=== PATIENT | male | born 1985 | race African-American/Black ===

== ENCOUNTER → 2017-01-29 | Outpatient (REF) | payer MEDICAID, OTHER ==
[2017-01-29 19:21] LABS: ALBUMIN 4.1 GM/DL (3.2-5.2); ALBUMIN/GLOBULIN RATIO 1.17 (1.00-1.93); ALKALINE PHOSPHATASE 112 U/L (45-117); ALT/SGPT 21 U/L (12-78); ANION GAP 9 MEQ/L (8-16); AST/SGOT 22 U/L (15-37); BILIRUBIN,TOTAL 1.3 MG/DL (0.2-1.0); BLOOD UREA NITROGEN 20 MG/DL (7-18); CALCIUM LEVEL 9.3 MG/DL (8.5-10.1); CARBON DIOXIDE LEVEL 28 MEQ/L (21-32); CHLORIDE LEVEL 105 MEQ/L (98-107); CHOLESTEROL LEVEL 122 MG/DL (<200); GLOMERULAR FILTRATION RATE > 60.0 (>60); GLUCOSE, FASTING 81 MG/DL (70-105); POTASSIUM SERUM 4.1 MEQ/L (3.5-5.1); SODIUM LEVEL 142 MEQ/L (136-145); TOTAL PROTEIN 7.6 GM/DL (6.4-8.2); TRIGLYCERIDES LEVEL 66 MG/DL (<150)
== END ==
LOC: M LAB REF 16:43
PROVIDERS: ATTEND Family Medicine Addiction Medicine
DX: Z00.00 Encounter for general adult medical examination without abnormal findings (principal)

== ENCOUNTER 2017-04-03 12:41 | Inpatient (IN) | payer OTHER ==
[~2017-04-03] VITALS: Ht 170.2 cm; Wt 66.0 kg
[2017-04-03] MEDS ORDERED: AMLOD/BENAZP (13:02)
[2017-04-03 14:43] LABS: MEAN CORPUSCULAR HEMOGLOBIN 30.9 pg (27.0-33.0); MEAN CORPUSCULAR HGB CONC 34.4 g/dl (32.0-36.5); PLATELET COUNT, AUTOMATED 365 10^3/uL (150-450); RED CELL DISTRIBUTION WIDTH 12.3 % (11.5-14.5); WHITE BLOOD COUNT 5.2 10^3/uL (4.0-10.0)
[2017-04-03 15:02] LABS: ALBUMIN 4.3 GM/DL (3.2-5.2); ALBUMIN/GLOBULIN RATIO 1.34 (1.00-1.93); ALKALINE PHOSPHATASE 105 U/L (45-117); ALT/SGPT 25 U/L (12-78); ANION GAP 5 MEQ/L (8-16); AST/SGOT 25 U/L (7-37); BILIRUBIN,DIRECT 0.2 MG/DL (0.0-0.2); BILIRUBIN,TOTAL 0.8 MG/DL (0.2-1.0); BLOOD UREA NITROGEN 15 MG/DL (7-18); CALCIUM LEVEL 9.2 MG/DL (8.5-10.1); CARBON DIOXIDE LEVEL 30 MEQ/L (21-32); CHLORIDE LEVEL 103 MEQ/L (98-107); GLOMERULAR FILTRATION RATE > 60.0 (>60); GLUCOSE, FASTING 79 MG/DL (70-105); SODIUM LEVEL 138 MEQ/L (136-145); TOTAL PROTEIN 7.5 GM/DL (6.4-8.2)
[2017-04-03 15:04] LABS: METHADONE URINE NEGATIVE (NEGATIVE)
[2017-04-03] MEDS ORDERED: ACETAMINOPHEN TAB 650MG DOSE (2X325MG) PO PRN (16:00)
[2017-04-03] MEDS ORDERED: MAALOX 30 ML SUSP *UDC PO PRN (16:00)
[2017-04-03] MEDS ORDERED: MOM 30ML SUSPENSION UDC PO PRN (16:00)
[2017-04-03] MEDS ORDERED: AMLO10CA PO (16:53)
[2017-04-03 17:19] VITALS: BP 151/91
[2017-04-03] MEDS: traZODone 50 MG TAB PO PRN (21:09)
[2017-04-04 06:47] VITALS: BP 142/51
[2017-04-04] MEDS: amLODIPine 10 MG TAB PO SCH (08:55)
[2017-04-04] MEDS: BENAZEPRIL 20 MG TAB PO SCH (08:56)
[2017-04-04 20:41] VITALS: BP 144/80
[2017-04-04] MEDS: traZODone 50 MG TAB PO PRN (21:17)
[2017-04-05 06:36] VITALS: BP 140/90
[2017-04-05] MEDS: amLODIPine 10 MG TAB PO SCH (08:11)
[2017-04-05] MEDS: BENAZEPRIL 20 MG TAB PO SCH (08:11)
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
--- NOTE | 2017-04-05 10:47 | MHIPNPDOC ---
[facility] Progress Note Progress Note DATE OF SERVICE: 04/05/17 HISTORY: "31-year-old male with a history of depression, learning disability and anger management, admitted to our unit on a 9.39 legal status. According to the records, the patient was brought to the emergency department after he expressed suicidal thoughts at a [facility] ([facility]. The patient was planning to jump into the [place]. The patient states that has been feeling very depressed with poor sleep, feelings of hopelessness, helplessness, and suicidal ideation." VITAL SIGNS: See below. NEW TEST RESULTS: N/A CURRENT MEDICATIONS: See below. MENTAL STATUS EXAMINATION: Patient is a 31-year old male, who is alert, cooperative, dressed in hospital clother, poor eye contact. Speech: Is spontaneous and fluent. Language skills are Fair Thought processes including: Intact. Thought content: Anxious thoughts about going back to the place he lived. Abstract reasoning, and computation: Limited Description of associations: Good Description of abnormal or psychotic thoughts: Denies SI/HI, a/V hallucinations , denies thought delusions Judgment: Limited Insight: Limited Orientation: Oriented x 3 Recent and remote memory: Intact Attention span and concentration: Fair Language: Fair Fund of knowledge: Limited. Mood: Depressed. Affect: Constricted DIAGNOSES: 1. Adjustment Disorder with depressed/anxious mood ASSESSMENT:Patient says he got stressed out because he could not sleep for days because his room was full of bed bugs. He says he has limited resources and he became so overwhelmed and depressed by not being able to sleep that he thought about killing himself. Talked to him about the possibility of talking to [facility] on Saturday to see if there's another housing possibility for him. MANAGEMENT PLAN: As above TIME SPENT: 20 minutes. Vital Signs Vital Signs Date Time Temp Pulse Resp B/P (MAP) Pulse Ox O2 Delivery O2 Flow Rate FiO2 04/05/17 08:11 65 143/81 04/05/17 06:36 98.6 14 04/04/17 06:47 Room Air 04/03/17 16:53 96 Current Medications Current Medications Acetaminophen (Tylenol Tab) 650 mg Q6HP PRN PO HEADACHE or DISCOMFORT; Start 04/03/17 at 16:00; Stop 05/03/17 at 15:59 Al Hydrox/Mg Hydrox/Simethicone (Mylanta) 30 ml Q4HP PRN PO HEARTBURN/ INDIGESTION; Start 04/03/17 at 16:00; Stop 05/03/17 at 15:59 Amlodipine Besylate (Norvasc) 10 mg DAILY PO Last administered on 04/05/17 08 :11; Start 04/04/17 at 09:00; Stop 05/04/17 at 08:59 Benazepril HCl (Lotensin) 20 mg DAILY PO Last administered on 04/05/17 08:11 ; Start 04/04/17 at 09:00; Stop 05/04/17 at 08:59 Home Med (Med Rec Complete!) ASDIRECTED XX ; Start 04/03/17 at 17:00; Stop at 17:00; Status DC Magnesium Hydroxide (Milk Of Magnesia) 30 ml DAILYPRN PRN PO CONSTIPATION; Start 04/03/17 at 16:00; Stop 05/03/17 at 15:59 Trazodone HCl (Desyrel) 50 mg QHSP PRN PO INSOMNIA Last administered on 21:17; Start 04/03/17 at 16:00; Stop 05/03/17 at 15:59 Allergies Coded Allergies: Kiwi (Verified Allergy, Unknown, 04/03/17) CITLALI FERRARA MD Apr 05, 2017 10:47
[2017-04-05] MEDS: ESCITALOPRAM OXALATE 10 MG TAB (LEXAPRO) PO SCH (11:45)
[2017-04-05 18:00] VITALS: BP 146/89
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
[2017-04-05] MEDS: traZODone 50 MG TAB PO PRN (21:12)
[2017-04-06 06:38] VITALS: BP 153/98
[2017-04-06] MEDS: BENAZEPRIL 20 MG TAB PO SCH (08:20)
[2017-04-06] MEDS: amLODIPine 10 MG TAB PO SCH (08:20)
[2017-04-06] MEDS: ESCITALOPRAM OXALATE 10 MG TAB (LEXAPRO) PO SCH (08:20)
--- NOTE | 2017-04-06 17:38 | MHIPN ---
DATE: 04/06/2017 HISTORY: A 31-year-old male admitted to our unit for depression, high anxiety. Patient also has a learning disability and anger management problems. MEDICATIONS: - Lexapro 20 mg by mouth every morning - trazodone 50 mg by mouth at bedtime as needed for insomnia SUBJECTIVE: "I'm feeling a little better." OBJECTIVE: Patient is improving slowly. Patient is interacting better with other patients and staff. Denies auditory or visual hallucinations or delusions. Denies side effect from medication. Patient appears to be motivated for treatment. MENTAL STATUS EXAMINATION: Patient dressed in [facility]. Patient is cooperative during exam. Has fair eye contact. The speech is slow and monotone. Mood is depressed and anxious but improved. Affect is congruent with mood. No delusions. No hallucinations. Memory, attention, and concentration are fair. Patient is able to contract for safety during the interview. Insight and judgment are fair. ASSESSMENT: 1. Depression, 2. High anxiety. 3. Learning disability. 4. Anger management. PLAN: 1. Continue with Lexapro 20 mg by mouth every morning. 2. Continue with trazodone 50 mg by mouth at bedtime as needed for insomnia. 3. Continue medication management, individual and group therapy.
[2017-04-06 18:00] VITALS: BP 160/98
[2017-04-06] MEDS: traZODone 50 MG TAB PO PRN (21:10)
[2017-04-07 06:43] VITALS: BP 156/97
[2017-04-07] MEDS: amLODIPine 10 MG TAB PO SCH (08:47)
[2017-04-07] MEDS: ESCITALOPRAM OXALATE 10 MG TAB (LEXAPRO) PO SCH (08:47)
[2017-04-07] MEDS: BENAZEPRIL 20 MG TAB PO SCH (08:47)
--- NOTE | 2017-04-07 17:33 | MHIPN ---
DATE: 04/07/2017 HISTORY: A 31-year-old male admitted to our unit for depression and high anxiety. The patient also has a learning disability and anger management problems. MEDICATIONS: - Lexapro 20 mg by mouth every morning - trazodone as needed for insomnia SUBJECTIVE: "I'm feeling much better, I don't think I need medication." OBJECTIVE: The patient reports significant improvement from admission. The patient is reporting that he no longer will take the medications since he believes that he does not need to take antidepressants and that he has been feeling a lot better. I encouraged the patient to discuss this issue with his primary psychiatrist. MENTAL STATUS EXAMINATION: The patient is dressed in [facility]. The patient is cooperative, has fair eye contact. Speech is normal in rate, volume and articulation, is coherent and is spontaneous. Mood is slightly depressed but improved. Affect is congruent with mood. No delusions. No hallucinations. Memory, attention, and concentration are fair. The patient is denying suicidal or homicidal ideation. Insight and judgment are fair. ASSESSMENT: 1. Depression. 2. High anxiety. 3. Learning disability. 4. Anger management. PLAN: 1. Continue Lexapro 20 mg by mouth every morning. 2. Continue trazodone as needed for insomnia. 3. Continue medication management, individual and group therapy.
[2017-04-07 18:00] VITALS: BP 158/79
[2017-04-07] MEDS: traZODone 50 MG TAB PO PRN (22:11)
[2017-04-08 06:00] VITALS: BP 158/96
[2017-04-08] MEDS: ESCITALOPRAM OXALATE 10 MG TAB (LEXAPRO) PO SCH (09:00)
[2017-04-08 09:04] VITALS: BP 165/86
[2017-04-08] MEDS: amLODIPine 10 MG TAB PO SCH (09:04)
[2017-04-08] MEDS: BENAZEPRIL 20 MG TAB PO SCH (09:04)
[2017-04-08] MEDS ORDERED: TRAZO50TA PO (10:01)
[2017-04-08] MEDS ORDERED: ESCI10TA2 PO (10:01)
[2017-04-08] MEDS ORDERED: AMLO10TA2 PO (10:06)
[2017-04-08] MEDS ORDERED: BENA20TA PO (10:06)
--- NOTE | 2017-04-08 14:38 | MHDSPDOC ---
[facility] Discharge Summary Discharge Summary DATE OF ADMISSION: Apr 03, 2017 at 15:48 DATE OF DISCHARGE: Apr 08, 2017 at 13:08 DISCHARGE DIAGNOSES: 1. Adjustment Disorder with depressed/anxious mood 2. Generalized anxiety disorder REASON FOR ADMISSION: As per Dr. Velásquez: "31-year-old male with a history of depression, learning disability and anger management, admitted to our unit on a 9.39 legal status. According to the records, the patient was brought to the emergency department after he expressed suicidal thoughts at a [facility]. The patient was planning to jump into the [place]. The patient states that has been feeling very depressed with poor sleep, feelings of hopelessness, helplessness, and suicidal ideation. There is no evidence of psychotic symptoms. No auditory or visual hallucinations or delusions. The patient has learning disability and has anger management problems. He has been on probation for the last 3 years for endangering the welfare of a child. The patient is also at [facility] for alcohol dependency. The patient reports that he has stopped drinking 1-1/2 months ago but admits that he has been drinking a beer now and then." CONSULTANTS INVOLVED: None TREATMENT AND PROGRESS ON THE UNIT : Patient admitted to be very stressed out because he lives at an apartment in [facility] that is infested with bed bugs and he said there are so many, that he can't sleep because they bite him. He said he can't stay there for long periods of time because they bite him. He reported being very irritable and on edge. He didn't see an end to this problem or a solution to this situation and he said he didn't have any support system in the area and for that reason, he thought of [place]. At the [facility], he showed a good response to medications, denied side effects, attended some of the groups. On the . he didn't look depressed and he denied SI/HI/psychosis but said he still felt stressed about going back to the same place. he said he expected us to help him with with his housing situation but I explained we couldn't get involved in this, that was up to DSS. HOSPITAL COURSE: As above DISCHARGE ASSESSMENT: Patient was not in danger to self or others, he was not suicidal, not homicidal and not psychotic. MENTAL STATUS EXAMINATION ON DISCHARGE: Patient is a 31-year old male, who is alert, cooperative, dressed in personal clothes poor eye contact. Speech: Normal in tone, rate and volume. Language skills are Fair Thought processes including: Intact. Thought content: Anxious thoughts about going back to his apartment Abstract reasoning, and computation: Limited Description of associations: Good Description of abnormal or psychotic thoughts: Denies SI/HI, a/V hallucinations , denies thought delusions Judgment: Improving Insight: Improving Orientation: Oriented x 3 Recent and remote memory: Intact Attention span and concentration: Fair Language: Fair Fund of knowledge: Limited. Mood: slightly anxious Affect: congruent with mood MEDICATIONS ON DISCHARGE: Amlodipine Besylate (Amlodipine Besylate) 10 Mg Tab, 10 MG PO DAILY for HYPERTENSION, #7 Benazepril Hcl (Lotensin) 20 Mg Tab, 20 MG PO DAILY for HYPERTENSION, #7 Escitalopram Oxalate (Escitalopram Oxalate) 10 Mg Tab, 20 MG PO DAILY for DEPRESSION, #7 Scheduled PRN Trazodone HCl (Trazodone HCl) 50 Mg Tab, 50 MG PO QHSP for INSOMNIA, #7 PLAN/FOLLOWUP ARRANGEMENTS: * Mental Health Appt 1 * Care Coordination/Case Management/Supervision [facility] * Mental Health [facility] * Established With This Provider No * Therapist Karne Noonan * Date Apr 10, 2017 * Time 14:00 * Address of Clinic or Practice [address] [place] [address] * Follow Up Care Education Label * Chemical Dependency Appt1 * Chemical Dependency [facility] * Established With This Provider Yes * Therapist Ronnie * Date Apr 09, 2017 * Time 09:00 * Address of Clinic or Practice [address] [place] [address] * Follow Up Care Education Label * Chemical Dependency Appt2 * Chemical Dependency [facility] * Therapist Emi * Date Apr 10, 2017 * Time 09:00 * Address of Clinic or Practice [address] [place] [address] * Follow Up Care Education Label * Medical * Medical Follow Up [facility]- Dr Rudd * Established With This Provider Yes * Date Apr 09, 2017 * Time 17:00 * Address of Clinic or Practice [address] [place] [address] * The amount of time spent in the coordination of care for this patient was approximately 30 minutes. Vital Signs/I&Os Vital Signs Date Time Temp Pulse Resp B/P (MAP) Pulse Ox O2 Delivery O2 Flow Rate FiO2 04/08/17 09:04 165/86 04/08/17 06:00 98.3 73 16 04/07/17 18:00 96 Room Air Medications Scheduled Amlodipine Besylate (Amlodipine Besylate) 10 Mg Tab, 10 MG PO DAILY for HYPERTENSION, #7 Benazepril Hcl (Lotensin) 20 Mg Tab, 20 MG PO DAILY for HYPERTENSION, #7 Escitalopram Oxalate (Escitalopram Oxalate) 10 Mg Tab, 20 MG PO DAILY for DEPRESSION, #7 Scheduled PRN Trazodone HCl (Trazodone HCl) 50 Mg Tab, 50 MG PO QHSP PRN for INSOMNIA, #7 Allergies Coded Allergies: Kiwi (Verified Allergy, Unknown, 04/03/17) CITLALI FERRARA MD Apr 08, 2017 14:38
== END 2017-04-08 13:08 | disposition home or self-care (01) | DRG 882 ==
LOC: M ED 12:41 → M ED INP 15:48 → M PSY 17:20
PROVIDERS: ADMIT Psychiatry & Neurology Psychiatry; ATTEND Psychiatry & Neurology Psychiatry
DX: F43.23 Adjustment disorder with mixed anxiety and depressed mood (principal); F41.1 Generalized anxiety disorder; F10.20 Alcohol dependence, uncomplicated; Z79.899 Other long term (current) drug therapy; I10 Essential (primary) hypertension; Z91.018 Allergy to other foods; F17.210 Nicotine dependence, cigarettes, uncomplicated

== ENCOUNTER → 2017-04-11 | Outpatient (RCR) | payer OTHER ==
[~2017-04-11] MED LIST: AMLO10CA PO; AMLO10TA2 PO; AMLOD/BENAZP; BENA20TA PO; ESCI10TA2 PO; TRAZO50TA PO
== END ==
LOC: M OUTALCOH 03-13 08:12
PROVIDERS: ATTEND Psychiatry & Neurology Psychiatry
DX: F10.20 Alcohol dependence, uncomplicated (principal); Z72.0 Tobacco use

== ENCOUNTER 2017-04-16 09:00 | Outpatient (RCR) | payer OTHER | END 2017-05-12 | LOC: M OUTALCOH 04-22 08:45 | DX: F10.20 Alcohol dependence, uncomplicated (principal); Z72.0 Tobacco use ==

== ENCOUNTER 2017-05-09 10:23 | Emergency (ER) | payer OTHER ==
[2017-05-09] MEDS: MECLIZINE 25 MG TABLET PO (11:00)
== END 2017-05-09 12:28 | disposition home or self-care (01) ==
LOC: M ED 10:23
DX: H81.391 Other peripheral vertigo, right ear (principal); H61.21 Impacted cerumen, right ear; I10 Essential (primary) hypertension; F41.9 Anxiety disorder, unspecified; Z91.018 Allergy to other foods; Z79.899 Other long term (current) drug therapy
CPT/HCPCS: 70450

== ENCOUNTER 2017-05-20 10:16 | Outpatient (RCR) | payer OTHER | END 2017-06-12 | LOC: M OUTALCOH 05-22 08:45 | DX: F10.20 Alcohol dependence, uncomplicated (principal); Z72.0 Tobacco use ==

== ENCOUNTER 2017-06-18 16:35 | Outpatient (RCR) | payer OTHER | END 2017-07-10 | LOC: M OUTALCOH 16:35 | DX: F10.20 Alcohol dependence, uncomplicated (principal); Z72.0 Tobacco use ==

== ENCOUNTER 2017-07-19 12:09 | Emergency (ER) | payer OTHER ==
[2017-07-19] MEDS: BENAZEPRIL 20 MG TAB PO (13:24)
[2017-07-19] MEDS: amLODIPine 10 MG TAB PO (13:24)
== END 2017-07-19 14:50 | disposition home or self-care (01) ==
LOC: M ED 12:09
DX: I10 Essential (primary) hypertension (principal); F43.0 Acute stress reaction; I44.0 Atrioventricular block, first degree; I51.7 Cardiomegaly; Z86.79 Personal history of other diseases of the circulatory system; F17.200 Nicotine dependence, unspecified, uncomplicated; Z79.899 Other long term (current) drug therapy; Z91.018 Allergy to other foods
CPT/HCPCS: 93005

== ENCOUNTER 2017-09-03 00:30 | Emergency (ER) | payer OTHER ==
[2017-09-03] MEDS: KETOROLAC 30 MG/ML VIAL (J1885) IV (01:13)
[2017-09-03 01:16] LABS: BASO % 0.3 % (0.0-1.0); EOS # 0.3 10^3/uL (0.0-0.50); EOS % 4.1 % (0.0-3.0); HEMATOCRIT 41.6 % (42.0-52.0); HEMOGLOBIN 14.7 g/dl (13.5-17.5); IMMATURE GRANULOCYTE % 0.5 % (0-3.0); LYMPH # 1.4 10^3/uL (1.5-4.5); LYMPH % 21.6 % (24.0-44.0); MEAN CORPUSCULAR HEMOGLOBIN 30.9 pg (27.0-33.0); MEAN CORPUSCULAR HGB CONC 35.3 g/dl (32.0-36.5); MEAN CORPUSCULAR VOLUME 87.6 fl (80.0-96.0); MONO # 0.6 10^3/uL (0.0-0.8); MONO % 9.8 % (0.0-5.0); NEUTROPHILS # 4.1 10^3/uL (1.8-7.7); NEUTROPHILS % 63.7 % (36.0-66.0); PLATELET COUNT, AUTOMATED 220 10^3/uL (150-450); RED BLOOD COUNT 4.75 10^6/uL (4.30-6.10); WHITE BLOOD COUNT 6.4 10^3/uL (4.0-10.0)
[2017-09-03 01:34] LABS: INR 0.95; PROTHROMBIN TIME 12.8 SECONDS (12.4-14.5)
[2017-09-03 01:35] LABS: PARTIAL THROMBOPLASTIN TIME 35.7 SECONDS (26.8-37.9)
[2017-09-03 01:44] LABS: ANION GAP 4 MEQ/L (8-16); BLOOD UREA NITROGEN 17 MG/DL (7-18); CALCIUM LEVEL 9.3 MG/DL (8.5-10.1); CARBON DIOXIDE LEVEL 29 MEQ/L (21-32); CHLORIDE LEVEL 104 MEQ/L (98-107); CK-MB VALUE MASS 1.7 NG/ML (<3.6); CPK CREATINE PHOSPHOKINASE 339 U/L (39-308); CREATININE FOR GFR 1.11 MG/DL (0.70-1.30); GLOMERULAR FILTRATION RATE > 60.0 (>60); GLUCOSE, FASTING 91 MG/DL (70-100); POTASSIUM SERUM 4.2 MEQ/L (3.5-5.1); SODIUM LEVEL 137 MEQ/L (136-145); TROPONIN I 0.07 NG/ML (< 0.10)
[2017-09-03] MEDS ORDERED: ISOVUE-370 76% 100ML VIAL (Q9967) As Ordered (02:13)
[2017-09-03] MEDS: ASPIRIN 325 MG TAB PO (02:37)
[2017-09-03 04:14] LABS: CPK CREATINE PHOSPHOKINASE 299 U/L (39-308); TROPONIN I 0.07 NG/ML (< 0.10)
[2017-09-03 04:15] LABS: CK-MB VALUE MASS 1.2 NG/ML (<3.6)
== END 2017-09-03 04:53 | disposition home or self-care (01) ==
LOC: M ED 00:30
DX: R07.89 Other chest pain (principal); I10 Essential (primary) hypertension; Z79.899 Other long term (current) drug therapy; Z90.5 Acquired absence of kidney; Z90.49 Acquired absence of other specified parts of digestive tract; Z91.018 Allergy to other foods; Z86.79 Personal history of other diseases of the circulatory system
CPT/HCPCS: Q9967

== ENCOUNTER 2017-11-04 11:04 | Emergency (ER) | payer OTHER ==
[2017-11-04 12:12] LABS: BASO % 0.4 % (0.0-1.0); EOS # 0.1 10^3/uL (0.0-0.50); HEMATOCRIT 39.8 % (42.0-52.0); HEMOGLOBIN 14.1 g/dl (13.5-17.5); IMMATURE GRANULOCYTE % 0.2 % (0-3.0); LYMPH % 19.9 % (24.0-44.0); MEAN CORPUSCULAR HEMOGLOBIN 30.6 pg (27.0-33.0); MEAN CORPUSCULAR HGB CONC 35.4 g/dl (32.0-36.5); MEAN CORPUSCULAR VOLUME 86.3 fl (80.0-96.0); MONO # 0.5 10^3/uL (0.0-0.8); MONO % 9.2 % (0.0-5.0); NEUTROPHILS # 3.3 10^3/uL (1.8-7.7); NEUTROPHILS % 68.3 % (36.0-66.0); PLATELET COUNT, AUTOMATED 225 10^3/uL (150-450); RED BLOOD COUNT 4.61 10^6/uL (4.30-6.10); RED CELL DISTRIBUTION WIDTH 12.2 % (11.5-14.5); WHITE BLOOD COUNT 4.9 10^3/uL (4.0-10.0)
[2017-11-04 12:28] LABS: INR 1.04; PROTHROMBIN TIME 13.7 SECONDS (12.4-14.5)
[2017-11-04] MEDS: PANTOPRAZOLE 40MG INJ (PROTONIX) (C9113) IV (12:34)
[2017-11-04 12:58] LABS: ANION GAP 5 MEQ/L (8-16); BLOOD UREA NITROGEN 13 MG/DL (7-18); CARBON DIOXIDE LEVEL 29 MEQ/L (21-32); CHLORIDE LEVEL 107 MEQ/L (98-107); CK-MB VALUE MASS < 1.0 NG/ML (<3.6); CPK CREATINE PHOSPHOKINASE 237 U/L (39-308); CREATININE FOR GFR 1.24 MG/DL (0.70-1.30); GLOMERULAR FILTRATION RATE > 60.0 (>60); GLUCOSE, FASTING 78 MG/DL (70-100); MB/CK RELATIVE INDEX 0.42 (< OR =4); POTASSIUM SERUM 4.1 MEQ/L (3.5-5.1); SODIUM LEVEL 141 MEQ/L (136-145); TROPONIN I 0.04 NG/ML (< 0.10)
[2017-11-04 13:36] LABS: ALBUMIN/GLOBULIN RATIO 1.25 (1.00-1.93); ALKALINE PHOSPHATASE 141 U/L (45-117); ALT/SGPT 19 U/L (12-78); AMYLASE 96 U/L (25-115); AST/SGOT 18 U/L (7-37); BILIRUBIN,DIRECT 0.2 MG/DL (0.0-0.2); LIPASE 65 U/L (73-393); TOTAL PROTEIN 7.2 GM/DL (6.4-8.2)
== END 2017-11-04 14:59 | disposition home or self-care (01) ==
LOC: M ED 11:04
DX: R07.89 Other chest pain (principal); T18.3XXA Foreign body in small intestine, initial encounter; Y92.9 Unspecified place or not applicable; Y93.9 Activity, unspecified; I44.0 Atrioventricular block, first degree; I51.7 Cardiomegaly; Z95.5 Presence of coronary angioplasty implant and graft; I77.1 Stricture of artery; Z79.899 Other long term (current) drug therapy; Z91.018 Allergy to other foods
CPT/HCPCS: C9113

== ENCOUNTER → 2017-11-08 | Outpatient (CLI) | payer OTHER | LOC: M RAD 15:42 | DX: K56.600 Partial intestinal obstruction, unspecified as to cause (principal) | CPT/HCPCS: 74176 ==

== ENCOUNTER → 2018-04-21 | Outpatient (REF) | payer MEDICAID ==
[2018-04-21 23:19] LABS: CHLAMYDIA DNA AMPLIFICATION NEGATIVE (NEGATIVE); GC DNA AMPLIFICATION POSITIVE (NEGATIVE)
== END ==
LOC: M LAB REF 09:26
DX: Z11.3 Encounter for screening for infections with a predominantly sexual mode of transmission (principal)

== ENCOUNTER 2018-07-18 07:58 | Emergency (ER) | payer OTHER, SELFPAY ==
[~2018-07-18] VITALS: Ht 170.2 cm; Wt 68.2 kg
[~2018-07-18 07:58] MED LIST changes: -AMLO10TA2 PO; +AMLO10TA5 PO; +AMLO1TAB21 PO; +BENA20TA8; +MECL1CHW2 PO; +PROT1TAB2 PO
[2018-07-18 08:46] LABS: HEMATOCRIT 45.4 % (42.0-52.0); HEMOGLOBIN 15.6 g/dl (13.5-17.5); MEAN CORPUSCULAR HEMOGLOBIN 30.5 pg (27.0-33.0); MEAN CORPUSCULAR HGB CONC 34.4 g/dl (32.0-36.5); MEAN CORPUSCULAR VOLUME 88.8 fl (80.0-96.0); PLATELET COUNT, AUTOMATED 251 10^3/uL (150-450); RED BLOOD COUNT 5.11 10^6/uL (4.30-6.10); WHITE BLOOD COUNT 11.9 10^3/uL (4.0-10.0)
[2018-07-18 09:06] LABS: BLOOD UREA NITROGEN 13 MG/DL (7-18); CALCIUM LEVEL 9.1 MG/DL (8.5-10.1); CARBON DIOXIDE LEVEL 27 MEQ/L (21-32); CHLORIDE LEVEL 104 MEQ/L (98-107); CREATININE FOR GFR 1.13 MG/DL (0.70-1.30); GLOMERULAR FILTRATION RATE > 60.0 (>60); GLUCOSE, FASTING 59 MG/DL (70-100); POTASSIUM SERUM 3.9 MEQ/L (3.5-5.1); SODIUM LEVEL 142 MEQ/L (136-145)
[2018-07-18] MEDS ORDERED: DEXTROSE 50% 50 ML SYRINGE IV STA (09:08)
[2018-07-18] MEDS ORDERED: LISINOPRIL 20 MG TAB PO ONE (10:30)
[2018-07-18] MEDS ORDERED: amLODIPine 10 MG TAB PO ONE (10:30)
[2018-07-18 10:45] VITALS: BP 177/99
[2018-07-18] MEDS ORDERED: NS 1,000 ML IV ONE (10:45)
[2018-07-18] MEDS ORDERED: ACETAMINOPHEN TAB 650MG DOSE (2X325MG) PO ONE (10:45)
--- NOTE | 2018-07-18 11:21 | REP ---
CHEST, TWO VIEWS: There is no evidence of acute infiltrate. No pleural effusion is seen. The heart is normal in size. The mediastinal silhouette is unremarkable. The visualized osseous structures are intact. IMPRESSION: No acute pulmonary disease. Electronically Signed by Sreekanth Cole MD 07/21/2018 11:01 A
[2018-07-18 12:02] VITALS: BP 133/77
--- NOTE | 2018-07-18 18:42 | ECGEPIP ---
Stationary ECG Study 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
== END 2018-07-18 12:16 | disposition home or self-care (01) ==
LOC: EDBD 07:58 → M ED 07:58
DX: R20.8 Other disturbances of skin sensation (principal); X31.XXXA Exposure to excessive natural cold, initial encounter; Y92.821 Forest as the place of occurrence of the external cause; Y93.89 Activity, other specified; Y99.9 Unspecified external cause status; I44.0 Atrioventricular block, first degree; I51.7 Cardiomegaly; I10 Essential (primary) hypertension; Z90.5 Acquired absence of kidney; Z90.49 Acquired absence of other specified parts of digestive tract; Z79.899 Other long term (current) drug therapy; Z91.018 Allergy to other foods

== ENCOUNTER → 2018-07-25 | Outpatient (REF) | payer OTHER ==
[2018-07-25 14:31] LABS: ALT/SGPT 19 U/L (12-78); BILIRUBIN,TOTAL 1.2 MG/DL (0.2-1.0); BLOOD UREA NITROGEN 15 MG/DL (7-18); CALCIUM LEVEL 8.9 MG/DL (8.5-10.1); CARBON DIOXIDE LEVEL 28 MEQ/L (21-32); CHLORIDE LEVEL 103 MEQ/L (98-107); CHOLESTEROL LEVEL 121 MG/DL (<200); CHOLESTEROL RISK RATIO 2.813 (<5); CREATININE FOR GFR 1.24 MG/DL (0.70-1.30); GLOMERULAR FILTRATION RATE > 60.0 (>60); GLUCOSE, FASTING 69 MG/DL (70-100); HDL CHOLESTEROL 43 MG/DL (>40); LDL CHOLESTEROL 65 MG/DL (<100); NON-HDL-C 78 MG/DL; POTASSIUM SERUM 4.9 MEQ/L (3.5-5.1); SODIUM LEVEL 137 MEQ/L (136-145); TOTAL PROTEIN 7.4 GM/DL (6.4-8.2); TRIGLYCERIDES LEVEL 63 MG/DL (<150)
== END ==
LOC: M LAB REF 11:48
PROVIDERS: ATTEND Nurse Practitioner Primary Care
DX: I10 Essential (primary) hypertension (principal)

== ENCOUNTER → 2018-09-23 | Outpatient (REF) | payer OTHER ==
[~2018-09-23] MED LIST changes: +MECL1CHW PO; -MECL1CHW2 PO
[2018-09-23 14:54] LABS: CHLAMYDIA DNA AMPLIFICATION NEGATIVE (NEGATIVE); GC DNA AMPLIFICATION NEGATIVE (NEGATIVE)
== END ==
LOC: M LAB REF 12:51
PROVIDERS: ATTEND Nurse Practitioner Primary Care
DX: Z72.51 High risk heterosexual behavior (principal); A54.9 Gonococcal infection, unspecified